=== PATIENT | female | born 1990 | race Caucasian/White ===

== ENCOUNTER 2019-11-12 19:33 | Emergency (ER) | payer OTHER ==
[~2019-11-12] VITALS: Ht 162.6 cm; Wt 84.0 kg
--- NOTE | 2019-11-12 19:42 | NUR ---
PATIENT ARRIVES WITH INJURY TO RIGHT ANKLE THAT HAPPENED TODAY AROUND 1 PM, SHE WAS GETTING OUT OF CAR AND STEPPED ON CURB AND FELL ON IT. IT IS SWOLLEN.
[2019-11-12] MEDS ORDERED: KETOROLAC 30 MG/1 ML ONE (19:57)
[2019-11-12] MEDS ORDERED: KETOROLAC 30 MG/1 ML IM ONE (20:00)
--- NOTE | 2019-11-12 20:28 | NUR ---
xray done. patient pain somewhat improved. awaiting results
[2019-11-12 20:35] VITALS: BP 122/78
--- NOTE | 2019-11-12 20:38 | NUR ---
foot wrapped jose/and crutches. teaching reviewed.
== END 2019-11-12 21:03 | disposition home or self-care (01) ==
LOC: ED 20:51
DX: S93.601A Unspecified sprain of right foot, initial encounter (principal); X50.0XXA Overexertion from strenuous movement or load, initial encounter; Y93.89 Activity, other specified; Y92.009 Unspecified place in unspecified non-institutional (private) residence as the place of occurrence of the external cause; Y99.8 Other external cause status
CPT/HCPCS: 73630; 96372; 99283; J1885